=== PATIENT | female | born 1990 | race Caucasian/White ===

== ENCOUNTER 2024-11-28 06:33 | Outpatient (CLI) | payer MEDICAID ==
[2024-11-28] MEDS ORDERED: GADOTERATE MEGLUMINE 7.5 MMOL/15 ML VIAL IV ONE (06:44)
[2024-11-28] MEDS ORDERED: iohexol 300 MG/1 ML 50ml polymer ONE (06:44)
[2024-11-28] MEDS ORDERED: LIDOcaine 1%/PF 5ML 10 MG/ML VIAL ONE (06:44)
[2024-11-28] MEDS ORDERED: LIDOcaine 1% 30ml preserv. free vial ONE (06:44)
--- NOTE | 2024-11-28 10:13 | RADIOLOGY REPORT ---
CLINICAL HISTORY: PAIN IN LEFT SHOULDER TECHNIQUE: Multisequence multiplanar MR arthrogram images of the left shoulder were obtained after t he uneventful intra-articular administration of dilute gadolinium contrast under fluoroscopic guidanc e. For details concerning the contrast injection, refer to the separately dictated same-day [facility] arthrogram report. COMPARISON: Correlation made to same day arthrogram injection images. FINDINGS: Acromioclavicular joint: There is mild acromioclavicular hypertrophy and mild edema. There is Type 2 acromion. Trace amount of fluid in the subacromial / subdeltoid bursa. Rotator cuff tendons: No tear or significant tendinosis in the supraspinatus, infraspinatus, subscapu leslee, or teres minor tendons. Biceps tendon: No significant tendinosis. No evidence of attrition or tear. Labrum: Fraying of the superior labrum. Bones: No fracture or focal marrow contusion. Muscles: Normal muscle bulk. No atrophy. Other: Examination limited due to body habitus and motion artifact. There is adequate distention of the joint with contrast. No loose bodies or significant synovitis. IMPRESSION: 1. Examination is limited for the reasons described above. 2. Mild fraying of the superior labrum. 3. No rotator cuff tear or significant tendinosis visualized. 4. Mild acromioclavicular hypertrophy.
--- NOTE | 2024-11-28 10:47 | RADIOLOGY REPORT ---
ANGIO ARTHROGRAM (A) Date: 11/28/2024 07:33 AM Clinical History: PAIN IN LEFT SHOULDER Comparison: None Procedure: Verbal and written informed consent were obtained from the patient for the procedure of LEFT SHOULDER fluoroscopically guided arthrogram, after the procedure, risks, and benefits of the procedure were explained to the patient. Risks include bleeding, infection, reaction to injected medications, and d amage to surrounding anatomic structures. The patient's questions were answered. The patient's most recent medical history was reviewed. A time out was performed to verify the patient's name, date of , and correct location of the pro cedure, prior to initiation of the procedure. The patient was placed supine on the fluoroscopic table and the area overlying the LEFT SHOULDER was prepped and draped in the usual sterile fashion. Approximately 7 ml of buffered 1% lidocaine were i nfused for local anesthesia. Under direct fluoroscopic guidance, a 22 gauge spinal needle was advanc ed percutaneously into the LEFT SHOULDER . The patient tolerated the procedure well. There were no immediate complications. Home-care instruct ions were reviewed with the patient prior to the patient's discharge from the fluoroscopy suite. The patient verbally affirmed understanding of these instructions. Impression: Technically successful fluoroscopically guided LEFT SHOULDER arthrogram. The patient was transporte d to MRI for further imaging at the completion of the procedure. Procedure by Dr. Cruz.
== END 2024-11-28 23:59 | disposition home or self-care (01) ==
LOC: RAD 06:33
PROVIDERS: ATTEND Pediatrics Sports Medicine
DX: M25.512 Pain in left shoulder (principal); M89.311 Hypertrophy of bone, right shoulder
CPT/HCPCS: 23350; 73222; 77002; A9575; J2003; J3490; Q9967